=== PATIENT | male | born 1980 | race Two or more races ===

== ENCOUNTER 2019-12-28 19:57 | Emergency (ER) | payer MEDICAID ==
[~2019-12-28] VITALS: Ht 180.3 cm; Wt 115.9 kg
[2019-12-28] MEDS ORDERED: METF-960 PO (20:10)
[2019-12-28] MEDS ORDERED: EMTR1TAB15 PO (20:10)
[2019-12-28 20:24] LABS: GLUCOSE,POINT OF CARE 281 MG/DL (70-110)
[2019-12-28 20:32] LABS: BASOPHILS % (AUTO) 0.7 % (0.0-2.0); EOSINOPHILS % (AUTO) 3.9 % (1.0-6.0); HEMATOCRIT 45.2 % (41-53); LYMPHOCYTES # (AUTO) 0.8 K/uL (1.0-4.8); LYMPHOCYTES % (AUTO) 16.7 % (22.0-44.0); MEAN CORPUSCULAR HEMOGLOBIN 30.2 pg (26.0-34.0); MEAN CORPUSCULAR HGB CONC 35.4 G/dL (31.0-37.0); MEAN CORPUSCULAR VOLUME 85 fL (80-100); MONOCYTES # (AUTO) 0.4 K/uL (0.1-1.0); MONOCYTES % (AUTO) 8.3 % (2.0-9.0); NEUTROPHILS # (AUTO) 3.3 K/uL (1.8-7.7); NEUTROPHILS % (AUTO) 70.4 % (40.0-70.0); PLATELET COUNT (AUTO) 215 K/uL (150-450)
[2019-12-28 20:40] LABS: ANION GAP 6 mmol/L (8-16); CALCIUM, TOTAL 9.3 mg/dL (8.8-10.5); CARBON DIOXIDE 28 mmol/L (22-29); CHLORIDE 102 mmol/L (98-107); CREATININE 0.82 mg/dL (0.60-1.30); GLOMERULAR FILTR. RATE CALC > 60 mL/min (>60); GLUCOSE,RANDOM 296 mg/dL (70-110); POTASSIUM 4.2 mmol/L (3.5-5.1); SODIUM SERUM 136 mmol/L (136-145); UREA NITROGEN, BLOOD 9 mg/dL (7-18)
[2019-12-28] MEDS ORDERED: ONDANSETRON HCL 4 MG TABLET PO ONE (20:45)
[2019-12-28] MEDS ORDERED: KETOROLAC TROMETHAMINE 10 MG TABLET PO ONE (20:45)
[2019-12-28 20:46] LABS: ALANINE AMINOTRANSFERASE 65 U/L (12-78); ALBUMIN 3.9 g/dL (3.4-5.0); ALKALINE PHOSPHATASE 83 U/L (46-116); ASPARTATE AMINOTRANSFERASE 20 U/L (15-37); BILIRUBIN,TOTAL 0.6 mg/dL (0.1-1.0); LIPASE 150 U/L (73-393); TOTAL PROTEIN, SERUM 7.7 g/dL (6.4-8.2)
[2019-12-28 22:30] VITALS: BP 132/89
== END 2019-12-28 23:00 | disposition home or self-care (01) ==
LOC: EMS 19:57
DX: K80.20 Calculus of gallbladder without cholecystitis without obstruction (principal)
CPT/HCPCS: 36415; 76705; 80053; 82962; 83690; 85025; 99284; Q0162